=== PATIENT | male | born 2000 | race Caucasian/White ===

== ENCOUNTER 2023-07-15 02:45 | Emergency (ER) | payer BC ==
[2023-07-15] MEDS: Diphtheria,Pertussis(Acell),Tetanus Vaccine 0.5 ML Syringe IM ONE (03:16)
[2023-07-15] MEDS: Clindamycin HCl 150 MG Cap PO ONE (03:16)
[2023-07-15] MEDS: Acetaminophen 325 MG Tab PO ONE (03:19)
== END 2023-07-15 03:29 ==
LOC: JD.ED 02:45
DX: S81.851A Open bite, right lower leg, initial encounter (principal); F10.920 Alcohol use, unspecified with intoxication, uncomplicated; Y04.2XXA Assault by strike against or bumped into by another person, initial encounter; Z88.0 Allergy status to penicillin
CPT/HCPCS: 90471; 90715; 99284; A9270; 99283